=== PATIENT | female | born 1950 | race Caucasian/White ===

== ENCOUNTER → 2017-02-20 | Outpatient (CLI) | payer OTHER ==
--- NOTE | 2017-02-21 10:20 | DI ---
XR KNEE 3 VW,02/20/2017 3:13 PM: Clinical History: Right knee pain of unspecified chronicity. Previous Exam: None at this facility. Findings: Multiple views of the right knee are obtained, and demonstrate anatomic alignment without fractures. Patient is status post left total knee arthroplasty. Joint spaces are preserved. Surrounding soft tissues are unremarkable. Impression: Status post right total knee arthroplasty.
== END ==
LOC: ORTHO 15:23
PROVIDERS: ATTEND Orthopaedic Surgery
DX: M25.561 Pain in right knee (principal); Z96.651 Presence of right artificial knee joint; Z98.890 Other specified postprocedural states
CPT/HCPCS: 73562